=== PATIENT | female | born 1995 | race Caucasian/White ===

== ENCOUNTER 2019-10-10 12:43 | Inpatient (IN) ==
[2019-10-10] MEDS ORDERED: BUTORPHANOL 2 MG/ML VIAL IV PRN (13:19)
[2019-10-10] MEDS ORDERED: ONDANSETRON 4 MG/2 ML VIAL IV PRN ×2 (13:19→19:33)
[2019-10-10] MEDS ORDERED: LACTATED RINGERS 1,000 ML IV SCH (13:30)
[2019-10-10] MEDS ORDERED: CITRIC ACID/SODIUM CITRATE 30 ML UDCUP PO ONE (17:59)
[2019-10-10] MEDS ORDERED: CLINDAMYCIN INJ 900 MG in PREMIX 1 EACH IV ONE (17:59)
[2019-10-10] MEDS ORDERED: FAMOTIDINE 20 MG/2 ML VIAL IV ONE (17:59)
[2019-10-10] MEDS ORDERED: OXYTOCIN/LR 20 UNIT/1,000 ML BAG IV ONE ×2 (18:22→19:33)
[2019-10-10 18:23] LABS: Basophils % 0.2 % (0.0-0.8); Eosinophils % 0.1 % (0.00-10.9); Hematocrit 35.3 VOL% (35.7-47.0); Hemoglobin 12.1 GM/DL (12.0-16.0); Immature Granulocytes % 0.9 %; Immature Granulocytes Absolute 0.21 #; Lymphocytes # 2.4 10*3/uL (1.4-4.0); Lymphocytes % 10.5 % (21.3-54.2); Mean Corpuscular HGB Conc 34.3 GM/DL (32-36); Mean Corpuscular Volume 103.2 FL (87-102); Mean Platelet Volume 9.2 FL (9.6-12.0); Monocytes % 8.2 % (1.7-12.7); NRBC # 0.02 10*3/uL; Neutrophils % 80.1 % (38.7-73.9); Platelet Count 498 T/CUMM (130-400); Red Blood Count 3.42 MC/CUMM (3.8-5.5); Red Cell Distribution Width 14.6 % (9.3-17.3); White Blood Count 22.7 T/CUMM (4-12)
[2019-10-10] MEDS ORDERED: TRANEXAMIC ACID 1,000 MG/10 ML VIAL ONE (18:23)
[2019-10-10] MEDS ORDERED: miSOPROStoL 200 MCG TABLET ONE (18:23)
[2019-10-10] MEDS ORDERED: CARBOPROST TROMETHAMINE 250 MCG/ML AMP IM ONE (18:24)
[2019-10-10] MEDS ORDERED: METHYLERGONOVINE 0.2 MG/1 ML AMP ONE (18:24)
[2019-10-10 19:22] LABS: Amorphous Crystals,Urine Occasional /HPF (Few); Apearance,Urine Slightly Hazy (Clear); Bacteria,Urine Moderate /HPF (Few); Bilirubin,Urine Negative (Negative); Blood, Urine Moderate mg/dL (Negative); Glucose,Urine (UA) Negative (Negative); Ketones,Urine Negative (Negative); Nitrite,Urine Negative (Negative); Protein,Urine Negative; RBC,Urine 4 /HPF (0-4); Urine Color Yellow (Yellow); Urine Specific Gravity 1.008 (1.001-1.035); Urine Urobilinogen < 2.0 EU/DL (0.2-1.0); WBC,Urine 22 /HPF (0-6)
[2019-10-10 19:25] LABS: Cord Arterial Blood HCO3 18.4 MMOL/L
[2019-10-10 19:29] LABS: Cord Venous Blood HCO3 18.9 MMOL/L; Cord Venous Blood PCO2 37.5 MMHG; Cord Venous Blood PO2 23.2
[2019-10-10] MEDS ORDERED: ACETAMINOPHEN 325 MG TABLET PO PRN (19:33)
[2019-10-10] MEDS ORDERED: LANOLIN 50% CREAM 0.3 OZ TUBE TOP PRN (19:33)
[2019-10-10] MEDS ORDERED: MEASLES/MUMPS/RUBELLA VACCINE 0.5 ML VIAL SUBCUT ONE (19:33)
[2019-10-10] MEDS ORDERED: BISACODYL 10 MG SUPP RECTAL PRN (19:33)
[2019-10-10] MEDS ORDERED: BENZOCAINE 20%/MENTHOL 0.5% SPRAY 56 GM CAN TOP PRN (19:33)
[2019-10-10] MEDS ORDERED: DIPH/TET/ACEL PERT BOOSTER VACCINE 0.5 ML VIAL IM ONE (19:33)
[2019-10-10] MEDS ORDERED: oxyCODONE/ACETAMINOPHEN 5-325 MG TABLET PO PRN (19:33)
[2019-10-10] MEDS ORDERED: RHO(D) IMMUNE GLOBULIN 300 MCG SYRINGE IM ONE (19:33)
[2019-10-10] MEDS ORDERED: HYDROCORTISONE 2.5% RECTAL CREAM 30 GM TUBE TOP PRN (19:33)
[2019-10-10] MEDS ORDERED: WITCH HAZEL PADS 100/JAR TOP PRN (19:33)
[2019-10-10 19:40] LABS: Lymphocytes 12 % (20-55); Segmented Neutrophils 85 % (50-85); Total Cells Counted 100
[2019-10-10] MEDS ORDERED: MORPHINE 10 MG/10 ML VIAL ONE (19:46)
[2019-10-10] MEDS ORDERED: PHENYLEPHRINE 1 MG/10 ML SYRINGE IV ONE (19:47)
[2019-10-10] MEDS ORDERED: propofoL 200 MG/20 ML VIAL IV ONE (19:47)
[2019-10-10] MEDS: DOCUSATE SODIUM 100 MG CAPSULE PO SCH (21:28)
[2019-10-10] MEDS: IBUPROFEN 800 MG TABLET PO PRN (21:35)
[2019-10-10] MEDS: oxyCODONE/ACETAMINOPHEN 5-325 MG TABLET PO PRN (21:36)
[2019-10-11] MEDS: CLINDAMYCIN INJ 900 MG in PREMIX 1 EACH IV SCH ×2 (03:22→10:44)
[2019-10-11] MEDS: oxyCODONE/ACETAMINOPHEN 5-325 MG TABLET PO PRN ×3 (03:23→18:30)
[2019-10-11] MEDS ORDERED: TRANEXAMIC ACID 1,000 MG/10 ML VIAL ONE (03:49)
[2019-10-11] MEDS: IBUPROFEN 800 MG TABLET PO PRN ×2 (06:13→20:47)
[2019-10-11 07:49] LABS: Basophils % 0.1 % (0.0-0.8); Eosinophils # 0.1 10*3/uL (0.0-0.87); Eosinophils % 0.4 % (0.00-10.9); Hematocrit 29.4 VOL% (35.7-47.0); Immature Granulocytes Absolute 0.15 #; Lymphocytes # 2.5 10*3/uL (1.4-4.0); Mean Corpuscular Volume 105.8 FL (87-102); Mean Platelet Volume 9.2 FL (9.6-12.0); Monocytes % 6.5 % (1.7-12.7); Platelet Count 386 T/CUMM (130-400); Red Blood Count 2.78 MC/CUMM (3.8-5.5); White Blood Count 15.7 T/CUMM (4-12)
[2019-10-11] MEDS: DOCUSATE SODIUM 100 MG CAPSULE PO SCH ×2 (11:32→20:49)
[2019-10-11] MEDS ORDERED: ALUMINUM/MAGNES/SIMETH MAX STR 30 ML UDCUP PO PRN (19:12)
[2019-10-12] MEDS ORDERED: CALCIUM CARBONATE CHEW 500 MG TABLET PO PRN (00:10)
[2019-10-12] MEDS: oxyCODONE/ACETAMINOPHEN 5-325 MG TABLET PO PRN ×2 (00:49→08:41)
[2019-10-12] MEDS: IBUPROFEN 800 MG TABLET PO PRN ×2 (03:42→08:41)
[2019-10-12 07:29] VITALS: BP 113/69
[2019-10-12] MEDS: DOCUSATE SODIUM 100 MG CAPSULE PO SCH (08:40)
== END 2019-10-12 10:30 | disposition home or self-care (01) | DRG 540 ==
LOC: N.LDOUT 12:43 → N.LD 12:45 → N.OB 23:34
PROVIDERS: ADMIT Specialist; ATTEND Specialist